=== PATIENT | female | born 1950 | race Caucasian/White ===

== ENCOUNTER 2016-12-05 12:48 | Emergency (ER) | payer MEDICARE ==
[~2016-12-05] VITALS: Ht 161.3 cm; Wt 80.9 kg
[2016-12-05 12:48] VITALS: BP 119/72; PULSE 88; RESP 20; O2SAT 94
[~2016-12-05 12:48] MED LIST: ADV250INH IH; ALBU8.5H2 IH; AMLO10TA3 PO; ASPI-628 PO; CITA40TA13 PO; DIF100A PO; IPRATOPIUM INH; LEVO50TA6 PO; PRA20 PO
--- NOTE | 2016-12-05 13:33 | ED.REPORT ---
HPI-Extremity Problem Lower Date of Service Dec 05, 2016 ED Provider: History of Present Illness: fall down around 1130 , caught on the rug and hit nubia floor. left knee laceration. maliha is primary care. Nursing Notes Stated Complaint: KNEE LACERATION Chief Complaint: Extremity Trauma Allergies: Coded Allergies: No Known Allergies (Verified , 02/19/15) Scheduled Amlodipine (Amlodipine) 10 Mg Tablet 10 MG PO DAILY Aspirin (Aspir 81) 81 Mg Tablet.dr 162 MG PO DAILY Citalopram (Citalopram) 40 Mg Tablet 40 MG PO DAILY Fluconazole (Diflucan) 100 Mg Tab 100 MG PO DAILY Fluticasone/Salmeterol (Advair 250-50 Diskus) 60 Puff/Inh Disk 1 PUFF IH BID Levothyroxine (Levothyroxine) 50 Mcg Tablet 50 MCG PO DAILY Pravastatin (Pravachol) 20 Mg Tab 20 MG PO DAILY Scheduled PRN ([Ipratopium]) 3 CC INH TID & PRN PRN PRN For Shortness of Breath Albuterol HFA (Proair HFA) 8.5 Gm Hfa.aer.ad 2 PUFFS IH Q4-6H PRN PRN For Shortness of Breath General Time Seen by MD: 13:32 Chief Complaint Knee injury left Hx Obtained From: Patient Symptom Duration: Since onset Caused by: Accidental Context: Occurred at: Home injury Past Medical History Past Medical History Reports: COPD Past Surgical History ankle Reports: Tubal ligation Smoking History Former Smoker (quit in 2000) Social History Alcohol Use: 1-3 per day Occupation , lives by self. Review of Systems Basic Review of Systems Eyes: Vision NL, No discharge : No dysuria, No frequency Psychiatric: Normal thought content Physical Exam Initial Vital Signs Vital Signs (First) Date Time Temp Pulse Resp B/P Pulse Ox O2 Delivery O2 Flow Rate FiO2 12/05/16 12:48 36.9 88 20 119/72 94 Nasal Cannula 4 Initial VS: Reviewed, Vital signs normal General/Constitutional: Well-developed, Well-nourished Abdomen / GI: Soft, Non-tender, No guarding, No rebound, No distention Psychiatric: Mood/affect normal, Behavior normal, Normal thought content left knee has 13.2 cm laceration, good alignment, no active bleeding Ankle / Foot: Atraumatic, Inspection NL, Full range of motion, No swelling General/Constitutional: Awake, Alert, No acute distress, Well appearing, Well developed, Well hydrated Diminished Breath Sounds: Positive: Decreased bilateral Cardiovascular: Heart rate NL, Regular rhythm, Heart sounds NL, No gallop Procedures Laceration Management Time: 13:45 Procedure Performed by: Allied health pract Consent / Setup / Site Prep: Informed consent provided Wound Length: 13 cm Local Anesthesia: Lidocaine 1%, 4cc, 5cc, 27g needle Digital Block: No Undermining / Margins: Flaps aligned Repair Skin: ___ O (4), Nylon # Sutures - Skin: 11 Closure Layers: 1 Suture Technique: Mattress Post-Procedure / Complications: Antibiotic oint applied, Dressing applied, No complications, Condition improved, Tolerated procedure well, Patient stable Re-Eval/Medical Decision Med Decision/Clinical Course 66 year old female with ground level fall in the home, on hospice presents for laceration repair of knee. Advised an x-ray because of concern of length of knee. Patient does not desire test. Wound has been repaired with 11 mattress sutures, good alignment, no active bleeding. No sign of puncture wound or patella fracture Discharge & Departure Impression: Primary Impression: Laceration of knee, left Disposition: Home Patient Instructions: Laceration (ED) Additional Instructions: The laceration has been repaired with 11 mattress sutures. They need to be in for at least 14 days if not longer. Use bacitracin to the wound daily. Can shower briefly after 24 hours. Need to work on range of motion or your knee will stiffen up. Hospice can remove the sutures if they feel comfortable, if not return to the ER. REturn with increasing redness or any concerns. Continue with your regular pain medications. It was a pleasure working with you!. Referrals: Julia Mcgowan MD (PCP) EDSupervising Provider for APC: Gabbi Sharp MD copies to: Julia Mcgowan MD, Sue ARNP Dec 05, 2016 13:33
== END 2016-12-05 15:00 | disposition home or self-care (01) ==
LOC: SED 12:48
DX: S81.012A Laceration without foreign body, left knee, initial encounter (principal); W18.39XA Other fall on same level, initial encounter; Y93.89 Activity, other specified; Y92.019 Unspecified place in single-family (private) house as the place of occurrence of the external cause; Y99.8 Other external cause status; J44.9 Chronic obstructive pulmonary disease, unspecified; Z79.82 Long term (current) use of aspirin; Z87.891 Personal history of nicotine dependence